=== PATIENT | female | born 1955 ===

== ENCOUNTER 2018-11-25 10:48 | Outpatient (CLI) | payer OTHER | END 2018-11-25 10:51 | disposition home or self-care (01) | LOC: MAMO-SONO 10:48 | DX: Z12.31 Encounter for screening mammogram for malignant neoplasm of breast (principal); Z87.898 Personal history of other specified conditions; N64.89 Other specified disorders of breast ==

== ENCOUNTER 2018-12-23 13:52 | Outpatient (CLI) | payer OTHER | END 2018-12-23 13:54 | disposition home or self-care (01) | LOC: MAMO-SONO 13:52 | DX: R92.0 Mammographic microcalcification found on diagnostic imaging of breast (principal) ==

== ENCOUNTER 2019-01-02 11:23 | Outpatient (CLI) | payer OTHER | END 2019-01-02 12:00 | disposition home or self-care (01) | LOC: NUCLEAR 11:23 | DX: M81.0 Age-related osteoporosis without current pathological fracture (principal) ==

== ENCOUNTER 2019-04-15 11:01 | Outpatient (CLI) | payer OTHER ==
[2019-04-18] MEDS ORDERED: SINGULAIR10 MG PO (10:55)
== END 2019-04-15 11:13 | disposition home or self-care (01) ==
LOC: MAMO-SONO 11:01
DX: N60.11 Diffuse cystic mastopathy of right breast (principal); N60.12 Diffuse cystic mastopathy of left breast

== ENCOUNTER 2019-04-21 06:43 | Day surgery (SDC) | payer OTHER ==
[~2019-04-21 06:43] MED LIST: SINGULAIR10 MG PO
== END 2019-04-21 19:35 | disposition home or self-care (01) ==
LOC: CIR.AMB 06:43
DX: C50.411 Malignant neoplasm of upper-outer quadrant of right female breast (principal); N60.12 Diffuse cystic mastopathy of left breast; C77.3 Secondary and unspecified malignant neoplasm of axilla and upper limb lymph nodes

== ENCOUNTER 2020-03-03 12:00 | Outpatient (CLI) | payer OTHER | END 2020-03-03 12:02 | disposition home or self-care (01) | LOC: SONOGRAMA 12:00 | DX: R10.2 Pelvic and perineal pain (principal) ==